=== PATIENT | female | born 1955 | race Caucasian/White ===

== ENCOUNTER 2019-03-12 10:46 | Day surgery (SDC) | payer BC ==
[2019-03-10 15:31] VITALS: BMI 44.2
[~2019-03-12 10:46] MED LIST: LACTATED RINGERS 1,000 ML IV SCH; LIDOCAINE 1% 20 ML VIAL (10MG/ML) FOR IV START INTRADERMA PRN
[2019-03-12 11:39] VITALS: RESP 16; TEMP 98.1
[2019-03-12] MEDS ORDERED: ONDANSETRON 4 MG/2 ML VIAL IVP ONE (11:49)
[2019-03-12] MEDS ORDERED: PROPOFOL 10 MG/ML 20 ML VIAL IV ONE (12:51)
--- NOTE | 2019-03-12 13:25 | P.PCN ---
Date of Procedure: 03/12/19 Description of Procedure: BRIEF HISTORY: Patient is a 63-year-old female presenting for outpatient colonoscopy for screening for malignant neoplasm 1. No change in bowel habits, blood per rectum or abdominal pain. Last colonoscopy approximately 7 years ago per her recollection. PROCEDURE PERFORMED: Colonoscopy with polypectomy. PREOPERATIVE DIAGNOSIS: Screening for malignant neoplasm of the colon, last colonoscopy 7 years ago. ESTIMATED BLOOD LOSS: Minimal. IV sedation per Anesthesia. PROCEDURE: After informed consent was obtained, the patient, was brought into the endoscopy unit. IV sedation was administered by Anesthesia under continuous monitoring. Digital rectal examination was normal. Initially the Olympus CF-190 flexible video colonoscope was then inserted in the rectum, gradually advanced into the cecum without any difficulty. Careful examination was performed as the scope was gradually being withdrawn. Ileocecal valve and the appendiceal orifice were visualized and appeared normal. Prep was excellent. Mucosa of the cecum, ascending colon, transverse colon, descending colon, sigmoid colon, and rectum appeared normal. 2 diminutive polyps measuring 2 mm in size removed from the ascending colon with cold forceps. Diminutive 2 mm descending colon polyp removed with cold forcep polypectomy. Retroflexion was performed in the rectum and no lesions were seen, low-grade internal hemorrhoids noted. The patient tolerated the procedure well. IMPRESSION: 3 diminutive colon polyps removed with cold forceps, 2 from the ascending colon into the descending colon. Otherwise normal-appearing colon from rectum to cecum. RECOMMENDATIONS: Findings of this examination were discussed with the patient and her . Okay to resume diet. Okay to resume medications. Await pathology from polypectomies. Anticipate repeat colonoscopy in 5 years for history of colon polyps pending pathology from polypectomies.
[2019-03-12 13:34] VITALS: PULSE 57
[2019-03-12 13:48] VITALS: BP 129/75
== END 2019-03-12 14:05 | disposition home or self-care (01) ==
LOC: ORWHC2ENDO 10:46
PROVIDERS: ATTEND Internal Medicine
DX: Z12.11 Encounter for screening for malignant neoplasm of colon (principal); D12.2 Benign neoplasm of ascending colon; D12.4 Benign neoplasm of descending colon; K64.8 Other hemorrhoids; E78.5 Hyperlipidemia, unspecified; K21.9 Gastro-esophageal reflux disease without esophagitis; Z88.0 Allergy status to penicillin; Z91.048 Other nonmedicinal substance allergy status; Z86.718 Personal history of other venous thrombosis and embolism; Z86.711 Personal history of pulmonary embolism; Z79.01 Long term (current) use of anticoagulants; Z79.899 Other long term (current) drug therapy; Z87.891 Personal history of nicotine dependence; Z90.49 Acquired absence of other specified parts of digestive tract; Z96.651 Presence of right artificial knee joint; Z98.890 Other specified postprocedural states
CPT/HCPCS: 88305; 45380; J2405; J2704